=== PATIENT | male | born 2000 ===

== ENCOUNTER 2024-06-07 19:44 | Emergency (ER) | payer OTHER ==
[2024-06-07] MEDS ORDERED: Proparacaine 0.5% Ophth Soln 15 ML Bottle ONE (20:22)
[2024-06-07] MEDS ORDERED: Fluorescein 1 MG Ophth Strip ONE (20:23)
[2024-06-07] MEDS: Moxifloxacin 0.5% Ophth Soln 3 ML Bottle EYELF ONE (20:58)
[2024-06-07] MEDS: Erythromycin Base 0.5% Ophth Oint 3.5 GM Tube EYEBOTH ONE (20:59)
[2024-06-07] MEDS ORDERED: Fluorescein 1 MG Ophth Strip EYELF ONE (21:09)
[2024-06-07] MEDS ORDERED: Proparacaine 0.5% Ophth Soln 15 ML Bottle EYELF ONE (21:09)
== END 2024-06-07 21:10 | disposition home or self-care (01) ==
LOC: DL.ED 19:44
DX: T15.02XA Foreign body in cornea, left eye, initial encounter (principal); Z79.899 Other long term (current) drug therapy; X58.XXXA Exposure to other specified factors, initial encounter
CPT/HCPCS: 99283; A9270; J3490